=== PATIENT | male | born 1995 | race Caucasian/White ===

== ENCOUNTER 2020-10-06 11:26 | Emergency (ER) | payer OTHER ==
[~2020-10-06 11:26] MED LIST: KEFLEX250 MG PO
[2020-10-06 12:32] LABS: BILIRUBIN NEGATIVE (NEGATIVE); BLOOD NEGATIVE Ery/uL (NEGATIVE); CLARITY CLEAR (CLEAR); COLOR YELLOW (YELLOW); GLUCOSE (U) NORMAL (NORMAL); LEUKOCYTES NEGATIVE Leu/uL (NEGATIVE); NITRITE NEGATIVE (NEGATIVE); PROTEIN NEGATIVE (NEGATIVE); SPECIFIC GRAVITY >=1.030 (1.001-1.030); UROBILINOGEN 0.2 mg/dL (0.2-1.0); pH 5.5 (5.0-9.0)
[2020-10-06 12:36] LABS: BASOPHIL 0.8 % (0-2); EOSINOPHIL 1.5 & (0-5); HCT 45.8 % (42.0-52.0); HGB 15.6 g/dl (13.2-18.0); LYMPHOCYTE 38.5 % (15-48); MCH 30.1 pg (25.0-31.0); MCHC 34.1 g/dL (32.0-36.0); MCV 88.2 fL (78.0-100.0); MONOCYTE 8.2 % (0-12); MPV 11.4 fL (6.0-9.5); NEUTROPHIL 50.8 % (41-80); PLT 214 K/uL (150-400); RBC 5.19 M/uL (4.70-6.00); RDW 12.3 % (11.5-14.0); WBC 6.55 K/uL (4.0-10.5)
[2020-10-06 12:54] LABS: ALBUMIN 4.5 g/dL (3.4-5.0); BILIRUBIN - TOTAL 0.6 mg/dL (0.2-1.0); CREATININE 0.89 mg/dL (0.67-1.17); GLOBULIN (CALCULATION) 4.4 g/dL; POTASSIUM 4.4 mmol/L (3.5-5.1); TOTAL PROTEIN 8.9 g/dL (6.4-8.2)
== END 2020-10-06 14:56 | disposition home or self-care (01) ==
LOC: FER 11:26
PROVIDERS: Nurse Practitioner
DX: K63.89 Other specified diseases of intestine (principal)
CPT/HCPCS: 36415; 80053; 81003; 82150; 83690; 85025; J7030; Q9967